=== PATIENT | female | born 2000 | race Caucasian/White ===

== ENCOUNTER 2024-01-10 11:22 | Emergency (ER) | payer OTHER, SELFPAY ==
--- NOTE | 2024-01-10 12:12 | ED.EYEPROB ---
HPI - Eye Problem General Chief complaint: Eye Problems Stated complaint: LT Eye Redness Time Seen by Provider: 01/10/24 12:45 Source: patient Mode of arrival: ambulatory Limitations: no limitations History of Present Illness HPI Narrative: Kristy is a 23-year-old female patient presenting to the clinic today with complaints of left eye redness and swelling x1 day. She reports that she does wear contacts and noticed last night that her eye was itching and then she woke up with some eye drainage and swelling with her eye injected and sclerae injected. Denies any fever or chills. Did report wearing some eye makeup last night as well. Related Data Home Medications Medication Instructions Recorded Confirmed levothyroxine 200 mcg tablet 200 mcg DIRECTED 01/10/24 01/10/24 norethindrone 1 mg-ethinyl 1 tablet DIRECTED 01/10/24 01/10/24 estradiol 20 mcg (24)-iron 75 mg (4) tablet (Aurovela 24 Fe) venlafaxine 75 mg capsule,extended 75 mg PO DIRECTED 01/10/24 01/10/24 release 24 hr Allergies Allergy/AdvReac Type Severity Reaction Status Date / Time No Known Allergies Allergy Verified 01/10/24 12:47 Review of Systems Review of Systems: Pertinent positives per HPI. Patient denies any fever, chills, rash, headache, visual changes, dizziness, cough, runny nose, sore throat, shortness of breath, chest pain, palpitations, nausea, vomiting, diarrhea, constipation, abdominal pain, or any urinary issues. PMFSH Comments At the time of my signature, I reviewed and agree with the nursing past medical, surgical, social, and family history. There is no relevant family history pertinent to the patient complaint. Exam Narrative: General: Well-developed, well nourished, in no apparent distress Head: Normocephalic, atraumatic Eyes: Pupils equally round and reactive to light bilaterally, EOM intact, right sclera and conjunctive clear, no discharge, right lids normal, left sclera and conjunctiva injected with left upper and lower eyelid swelling. Ears: TMs intact and clear, ear canals clear, no drainage, grossly hearing normal. Nose: Nares patent, no discharge, no inflammation, no sinus tenderness. Mouth: Oropharynx without lesions or masses, good dentition, MMM. Neck: Supple, trachea midline, no enlargement of anterior or posterior cervical nodes, no thyroid masses or goiter palpable. Cardio: Regular rate and rhythm, s1 and s2 normal, no murmur appreciated. Resp: Clear to auscultation bilaterally anteriorly and posteriorly, no rhonchi, rales, wheezing or rubs Course Course Emergency Course: Portions of this record may have been created with voice recognition software. Level of Care: Express Care Visit Vital Signs Vital signs: Vital Signs Temperature 36.5 C 01/10/24 12:21 Pulse Rate 97 01/10/24 12:21 Respiratory Rate 16 01/10/24 12:21 Blood Pressure 120/78 01/10/24 12:21 Pulse Oximetry 100 01/10/24 12:21 Temperature 36.5 C 01/10/24 12:21 Pulse Rate 97 01/10/24 12:21 Respiratory Rate 16 01/10/24 12:21 Blood Pressure 120/78 01/10/24 12:21 Pulse Oximetry 100 01/10/24 12:21 Vital signs reviewed MDM - Eye Problem MDM Narrative Medical decision making narrative: At the time of visit patient is resting comfortably on the exam table. Patient appears to be nontoxic. Plan: I suspect patient has left bacterial conjunctivitis. Prescription for ofloxacin eyedrops was sent to the pharmacy. Supportive measures were discussed with the patient and they voiced understanding discharge instructions and agrees to treatment plan. Return precautions reviewed Differential Diagnosis Differential diagnosis: Likely corneal abrasion, conjunctivitis, acute iritis, hyphema, periorbital cellulitis, subconjunctival hemorrhage, glaucoma, corneal ulcer and ruptured globe Discharge Plan Discharge Clinical Impression: Bacterial conjunctivitis Patient Disposition: Home, Self-Care
[2024-01-10 12:21] VITALS: BP 120/78; PULSE 97; RESP 16; TEMP 36.5; O2SAT 100
== END 2024-01-10 12:57 | disposition home or self-care (01) ==
PROVIDERS: Emergency Provider Nurse Practitioner Family; PCP Nurse Practitioner Family
DX: H10.89 Other conjunctivitis (principal); Z79.899 Other long term (current) drug therapy
CPT/HCPCS: 99203; G0463

== ENCOUNTER 2025-03-14 17:42 | Emergency (ER) | payer SELFPAY ==
[2025-03-14 17:57] VITALS: BP 123/80; PULSE 104; RESP 18; TEMP 36.4; O2SAT 100
--- NOTE | 2025-03-14 18:32 | ED.URI ---
HPI - URI/Sore Throat General Chief Complaint: Upper Respiratory Infection Stated Complaint: Strep Symptoms Time Seen by Provider: 03/14/25 18:26 Source: patient and RN notes reviewed Mode of arrival: ambulatory Limitations: no limitations History of Present Illness HPI Narrative: 24-year-old female patient presents today with a 2-3 day history of sore throat, congestion, body aches, low-grade fever. Denies shortness of breath. She has tried DayQuil and NyQuil with some relief and currently rates her pain 4/10. 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 Related Data Home Medications ?Medication ?Instructions ?Recorded ?Confirmed ?Last Taken ?Type levothyroxine 200 mcg tablet 200 mcg DIRECTED 01/10/24 01/10/24 Unknown History norethindrone 1 mg-ethinyl 1 tablet DIRECTED 01/10/24 01/10/24 Unknown History estradiol 20 mcg (24)-iron 75 mg (4) tablet (Aurovela 24 Fe) venlafaxine 75 mg capsule,extended 75 mg PO DIRECTED 01/10/24 03/14/25 Unknown History release 24 hr Allergies Allergy/AdvReac Type Severity Reaction Status Date / Time No Known Allergies Allergy Verified 03/14/25 17:59 [facility] Comments At time of signature, I have reviewed and agree with nursing past medical, surgical, social and family history unless otherwise noted. Please see nursing chart for further information. There is no relevant family history pertinent to the presenting complaint Exam Narrative: GENERAL: Mildly ill-appearing, well-nourished, and in no acute distress. HEAD: Normocephalic, atraumatic. EYES: EOMI. No redness or drainage. Conjunctivae normal. ENT: Mucous membranes pink and moist. Nares clear. No rhinorrhea. TMs normal bilaterally. Throat mildly erythematous without edema or exudate. Uvula midline. NECK: Normal AROM. Supple. No lymphadenopathy. CHEST: No respiratory distress. Clear to auscultation. HEART: Regular rate and rhythm. No murmur appreciated. EXTREMITIES: Normal range of motion. No edema. SKIN: Warm, dry, no rash. Capillary refill normal. Normal skin turgor. NEURO: No focal deficits. Alert and oriented x3. Gait steady. PSYCH: Normal affect. No signs of depression or anxiety. Course Course Level of Care: Express Care Visit Vital Signs Vital signs: Vital Signs Temperature 97.6 F 03/14/25 17:57 Pulse Rate 104 H 03/14/25 17:57 Respiratory Rate 18 03/14/25 17:57 Blood Pressure 123/80 03/14/25 17:57 Pulse Oximetry 100 03/14/25 17:57 Temperature 97.6 F 03/14/25 17:57 Pulse Rate 104 H 03/14/25 17:57 Respiratory Rate 18 03/14/25 17:57 Blood Pressure 123/80 03/14/25 17:57 Pulse Oximetry 100 03/14/25 17:57 Reviewed [facility] Narrative Medical decision making narrative: 24-year-old female patient presents today with a 2-3 day history of sore throat, congestion, body aches, low-grade fever. Denies shortness of breath. She has tried DayQuil and NyQuil with some relief and currently rates her pain 4/10. 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 Upon exam, patient is mildly ill appearing with a mildly erythematous throat without edema or exudate. Influenza negative, COVID negative, rapid strep negative. Culture pending. Symptoms likely viral in etiology. Discussed [id number] medication use and duration of illness. No prescription medications indicated at this time. Anticipatory guidance given. Vital signs stable with slight tachycardia. Patient agrees with plan. Differential Diagnosis Differential Diagnosis: COVID-19, influenza strep throat, URI Lab Data [facility] Lab Attestation statement: I personally reviewed the patient's lab results. Labs: Lab Results 03/14/25 03/14/25 Range/Units 18:16 18:45 POC Influenza A Ag Negative (Negative) POC Influenza B Ag Negative (Negative) POC SARS CoV-2 Ag Negative (Negative) POC Grp A Strep Screen Negative (Negative) Critical Care Time Critical Care Time Critical Care Time: No Discharge Plan Discharge Clinical Impression: Upper respiratory infection Qualifiers: URI type: unspecified URI Qualified Code(s): J06.9 - Acute upper respiratory infection, unspecified Patient Disposition: Home Condition: Stable Instructions: Upper Respiratory Infection (DC) Additional Instructions: Your influenza, COVID-19, and rapid strep swab were negative today at [facility]. You will be notified in a few days if the culture comes back positive for strep, and appropriate antibiotics will be called in for you at that time. Your symptoms are likely due to a viral illness, which is not treated with antibiotics. Viral symptoms can be present for up to 7-10 days. Take Tylenol or ibuprofen for fever or pain. Rest and stay hydrated. Follow up with your PCP in 7 days if symptoms are not improving. Go to the ER immediately if you have any difficulty breathing or swallowing. Patient Language: Salvadorean Prescriptions: No Action venlafaxine 75 mg capsule,extended release 24hr 75 mg PO DIRECTED levothyroxine 200 mcg tablet 200 mcg DIRECTED Aurovela 24 Fe 1 mg-20 mcg (24)/75 mg (4) tablet 1 tablet DIRECTED ofloxacin 0.3 % drops See Rx Instructions .ROUTE .COMPLEX Qty: 10 0RF Rx Instructions: put 1-2 drps into affected eye(s) every 2-4 h x 2 days, then 1-2 drps 4 times/day days 3-7 Follow-up/Referrals: PHYSICIAN,MANAGER SPEECH [Primary Care Provider, Internal Medicine] Stand Alone Forms: Work/School Release IP Time of Disposition: 19:03
[2025-03-14 19:01] LABS: EDSTREPNEGPOS1 Negative (Negative)
[2025-03-14 19:01] LABS: EDCOVIDSCREEN Negative (Negative); EDINFLUASCREEN Negative (Negative); EDINFLUBSCREEN Negative (Negative)
== END 2025-03-14 19:10 | disposition home or self-care (01) ==
PROVIDERS: Emergency Provider Nurse Practitioner
DX: J06.9 Acute upper respiratory infection, unspecified (principal); Z20.822 Contact with and (suspected) exposure to COVID-19; E89.0 Postprocedural hypothyroidism
CPT/HCPCS: 87081; 87426; 87804; 87880; 99213; G0463